=== PATIENT | female | born 1960 | race Caucasian/White ===

== ENCOUNTER → 2017-11-02 | Outpatient (CLI) | payer BC ==
--- NOTE | 2017-11-02 11:38 | BD ---
EXAMINATION TYPE: Axial Bone Density DATE OF EXAM: 11/02/2017 COMPARISON: NONE CLINICAL HISTORY: M81.0 Known Osteoporosis Height: 62.25 IN Weight: 222 LBS RISK FACTORS HISTORY OF: Active: YES Postmenopausal woman: AGE 45 MEDICATIONS: Additional Medications: PREDNISONE 12 DAY DOSE PAC, ADVAIR INHALER, 81 MG ASPIRIN, WATER PILL, EXAM MEASUREMENTS: Bone mineral densitometry was performed using the [employer] System. Bone mineral density as measured about the Lumbar spine is: ----- L1-L4(G/cm2): 1.060 T Score Values are as follows: ----- L2: -1.1 ----- L3: -1.1 ----- L4: -1.1 ----- L1-L4: -1.0 Bone mineral density BASELINE Bone mineral density about the R hip (g/cm2): 0.943 Bone mineral density about the L hip (g/cm2): 0.931 T Score values are as follows: -----R Neck: -0.7 -----L Neck: -0.8 -----R Total: -0.1 -----L Total: -0.4 Bone mineral density BASELINE IMPRESSION: Osteopenia about the lumbar spine and increased fracture risk. NOTE: T-SCORE=SD OF THE YOUNG ADULT MEAN.
--- NOTE | 2017-11-03 14:00 | MM ---
Reason for exam: screening (asymptomatic). Last mammogram was performed 3 years and 8 months ago. History: Patient is postmenopausal. Family history of premenopausal breast cancer in mother at age 43 and breast cancer in aunt. Benign add left US cyst aspiration of the left breast, August 2005. Benign stereotactic core biopsy of the left breast, February 10, 2004. Took hormonal contraceptives for 3 years beginning at age 20. Physical Findings: A clinical breast exam by your physician is recommended on an annual basis and results should be correlated with mammographic findings. MG 3D Screening Mammo W/Cad Bilateral CC and MLO view(s) were taken. Prior study comparison: March 15, 2014, bilateral MG screening mammo w CAD. March 17, 2011, mammogram, performed at [facility]. The breast tissue is heterogeneously dense. This may lower the sensitivity of mammography. Stable benign calcifications. There is chronic nodularity bilaterally. No significant changes when compared with prior studies. ASSESSMENT: Benign, BI-RAD 2 RECOMMENDATION: Routine screening mammogram of both breasts in 1 year.
== END | disposition home or self-care (01) ==
LOC: RADMAMWWP 07:03
PROVIDERS: ATTEND Internal Medicine Geriatric Medicine
DX: Z12.31 Encounter for screening mammogram for malignant neoplasm of breast (principal); M85.88 Other specified disorders of bone density and structure, other site
CPT/HCPCS: 77063; 77067; 77080

== ENCOUNTER 2018-07-03 22:00 | Observation (INO) | payer BC ==
[2018-07-03] MEDS ORDERED: SODIUM CHLORIDE 0.9% 1,000 ML IV STA ×2 (22:12)
[2018-07-03] MEDS ORDERED: SODIUM CHLORIDE 0.9% 500 ML 500 ML IV STA (22:12)
--- NOTE | 2018-07-03 22:25 | ED ---
Chest Pain HPI - General Chief Complaint: Chest Pain Stated Complaint: Chest pain Time Seen by Provider: 07/03/18 22:12 Source: patient, family, RN notes reviewed, old records reviewed Mode of arrival: ambulatory Limitations: no limitations - History of Present Illness Initial Comments: This is a 50-year-old female the ER for evaluation regards to chest pain. Aside chest pain throughout the day with no significant modifying factors. Patient tried to sleep tonight was unable to sleep had some diaphoresis heaviness on her chest. No shortness of breath. No fevers cough or congestion no travel history. No prior history of CAD patient does have history of high blood pressure MD Complaint: chest pain -: hour(s) Onset: during rest, during exertion, awoke with symptoms Pain Location: left chest Pain Radiation: LUE Severity: mild Severity scale (1-10): 3 Quality: tightness, heaviness Consistency: constant Improves With: nothing Worsens With: nothing Anginal Symptoms: other (Patient states she is does not feel right) Treatments Prior to Arrival: none - Related Data Home Medications Medication Instructions Recorded Confirmed Aspirin EC [Ecotrin Low Dose] 162 mg PO DAILY 07/03/18 07/03/18 Fluticasone/Salmeterol [Advair 1 puff INHALATION RT-BID 07/03/18 07/03/18 250-50 Diskus] Triamterene-Hctz 37.5-25Mg 1 cap PO DAILY 07/03/18 07/03/18 [Dyazide 37.5-25 Capsule] Previous Rx's Medication Instructions Recorded Metoprolol Tartrate [Lopressor] 25 mg PO BID #60 tab 07/04/18 Rosuvastatin [Crestor] 20 mg PO HS #90 tablet 07/04/18 Allergies Allergy/AdvReac Type Severity Reaction Status Date / Time No Known Allergies Allergy Verified 07/04/18 04:16 Review of Systems ROS Statement: Those systems with pertinent positive or pertinent negative responses have been documented in the HPI. ROS Other: All systems not noted in ROS Statement are negative. EKG Findings - EKG Comments: EKG Findings:: EKG shows sinus tachycardia rate of 114, [place] 146, QRS 86, QTc 4:30 Past Medical History Past Medical History: Asthma History of Any Multi-Drug Resistant Organisms: None Reported Past Surgical History: Adenoidectomy, Cholecystectomy, Hysterectomy, Tonsillectomy Past Psychological History: No Psychological Hx Reported Smoking Status: Never smoker Past Alcohol Use History: None Reported Past Drug Use History: None Reported - Past Family History Mother Family Medical History: Cancer Additional Family Medical History / Comment(s): Mother is alive at age 80 with history of hypertension and breast cancer. Father Family Medical History: Cancer Additional Family Medical History / Comment(s): Father at age 64 from kidney cancer with metastatic disease. Brother(s) Additional Family Medical History / Comment(s): Patient has 1 brother and 1 sister with no major medical problems. Patient is 2 daughters with no major medical problems. General Exam Limitations: no limitations Course Vital Signs 07/03/18 07/03/18 07/03/18 22:04 22:15 22:20 Temperature 98.7 F Pulse Rate 134 H 106 H Pulse Rate [ Pulse Oximetery ] Respiratory 20 14 Rate Blood Pressure 165/86 151/90 Blood Pressure [Left Arm] O2 Sat by Pulse 99 96 98 Oximetry 07/03/18 07/03/18 07/03/18 22:25 22:30 22:40 Temperature Pulse Rate 107 H 98 Pulse Rate [ Pulse Oximetery ] Respiratory 20 18 Rate Blood Pressure 151/90 151/90 143/64 Blood Pressure [Left Arm] O2 Sat by Pulse 98 98 Oximetry 07/03/18 07/03/18 07/03/18 22:50 23:00 23:10 Temperature Pulse Rate 111 H 95 93 Pulse Rate [ Pulse Oximetery ] Respiratory 14 13 20 Rate Blood Pressure 140/76 140/76 143/62 Blood Pressure [Left Arm] O2 Sat by Pulse 97 97 98 Oximetry 07/04/18 07/04/18 07/04/18 00:10 00:20 00:30 Temperature Pulse Rate 104 H 98 98 Pulse Rate [ Pulse Oximetery ] Respiratory 12 7 L 9 L Rate Blood Pressure 144/60 153/71 153/71 Blood Pressure [Left Arm] O2 Sat by Pulse 99 100 99 Oximetry 07/04/18 07/04/18 07/04/18 00:40 01:00 02:16 Temperature 98.5 F Pulse Rate 105 H 96 Pulse Rate [ 86 Pulse Oximetery ] Respiratory 11 L 14 16 Rate Blood Pressure 157/68 163/74 Blood Pressure 137/82 [Left Arm] O2 Sat by Pulse 99 97 97 Oximetry Disposition Clinical Impression: Chest pain Disposition: ADMITTED IP TO THIS HOSP Condition: Fair Is patient prescribed a controlled substance at d/c from ED?: No
[2018-07-03 22:35] LABS: Basophils # (A) 0.1 k/uL (0-0.2); Basophils % (A) 1 %; Eosinophils # (A) 0.4 k/uL (0-0.7); Eosinophils % (A) 3 %; HCT 48.5 % (34.0-46.0); HGB 14.5 gm/dL (11.4-16.0); Lymphocytes # (A) 2.2 k/uL (1.0-4.8); Lymphocytes % (A) 17 %; MCH 26.1 pg (25.0-35.0); MCV 87.1 fL (80.0-100.0); Mean Platelet Volume 6.6; Monocytes # (A) 0.7 k/uL (0-1.0); Monocytes % (A) 5 %; Neutrophils # (A) 9.6 k/uL (1.3-7.7); Neutrophils % (A) 73 %; Platelet Count 252 k/uL (150-450); RBC 5.57 m/uL (3.80-5.40); RDW 13.7 % (11.5-15.5); WBC 13.2 k/uL (3.8-10.6)
[2018-07-03 22:50] LABS: Creatine Kinase 46 U/L (30-135)
[2018-07-03 23:03] LABS: Creatine Kinase MB 0.3 ng/mL (0.0-2.4); Troponin I <0.012 ng/mL (0.000-0.034)
--- NOTE | 2018-07-03 23:15 | XR ---
EXAM: XR Chest, 2 Views CLINICAL HISTORY: Chest Pain. TECHNIQUE: Frontal and lateral views of the chest. COMPARISON: No relevant prior studies available. FINDINGS: Lungs: No evidence of focal consolidation. No evidence of pulmonary edema. Pleural space: No pleural effusion. No pneumothorax. Heart: Unremarkable. No cardiomegaly. Mediastinum: No mediastinal widening. Bones/joints: Osseous structures appear intact. Other: Mild elevation of right hemidiaphragm. Surgical clips in right upper quadrant. IMPRESSION: 1. No radiographic evidence of acute cardiopulmonary process. 2. Mild elevation of right hemidiaphragm.
[2018-07-03 23:25] LABS: Albumin 4.1 g/dL (3.5-5.0); Calcium 9.6 mg/dL (8.4-10.2); Potassium 3.6 mmol/L (3.5-5.1); Total Bilirubin 0.7 mg/dL (0.2-1.3); Total Protein 6.6 g/dL (6.3-8.2)
[2018-07-03 23:26] LABS: INR 0.9 (<1.2); Partial Thromboplastin Time 24.1 sec (22.0-30.0); Prothrombin Time 9.5 sec (9.0-12.0)
[2018-07-03] MEDS ORDERED: HEPARIN SOD,PORK IN 0.45% NACL 25,000 UNIT in 0.45% NACL 1 250ML.BAG IV SCH (23:45)
[2018-07-03] MEDS ORDERED: NITROGLYCERIN SL TABS 0.4 MG TAB SUBLINGUAL PRN (23:58)
[2018-07-03] MEDS ORDERED: HEPARIN SODIUM,PORCINE 5,000 UNIT/ML 1 ML VIAL IV ONE (23:58)
[2018-07-03] MEDS ORDERED: HEPARIN SODIUM,PORCINE 5,000 UNIT/ML 1 ML VIAL IV PRN (23:58)
--- NOTE | 2018-07-04 00:53 | CT ---
EXAM: CT Angiography Chest Without And With Intravenous Contrast CLINICAL HISTORY: Pain. TECHNIQUE: Axial computed tomographic angiography images of the chest without and with intravenous contrast using pulmonary embolism protocol. MIP reconstructed images were created and reviewed. Coronal and sagittal reformatted images were created and reviewed. CTDI is 53.38 mGy and DLP is 2222.3 mGy-cm. This CT exam was performed using one or more of the following dose reduction techniques: automated exposure control, adjustment of the mA and/or kV according to patient size, and/or use of iterative reconstruction technique. COMPARISON: No relevant prior studies available. FINDINGS: Pulmonary arteries: No evidence of central pulmonary embolism. Evaluation for small peripheral pulmonary emboli is limited due to suboptimal opacification of peripheral pulmonary arteries. Aorta: No thoracic aortic aneurysm or dissection. No evidence of intramural hematoma on noncontrast CT. Lungs: Unremarkable. No mass. No consolidation. No pulmonary edema. Pleural space: Unremarkable. No pleural effusion. No pneumothorax. Heart: Unremarkable. No cardiomegaly. No pericardial effusion. No evidence of RV dysfunction. Bones/joints: Mild osseous degenerative changes. Mild scoliotic curvature of the thoracic spine. No acute fracture. No dislocation. Soft tissues: Unremarkable as visualized. Lymph nodes: Unremarkable. No enlarged lymph nodes. Other: Mild elevation of right hemidiaphragm. IMPRESSION: 1. No evidence of acute chest abnormality to account for pain. 2. No thoracic aortic aneurysm or dissection. 3. No evidence of central pulmonary embolism. Evaluation for small peripheral pulmonary emboli is limited due to suboptimal opacification of peripheral pulmonary arteries. 4. Mild elevation of right hemidiaphragm. EXAM: CT Angiography Abdomen and Pelvis Without And With Intravenous Contrast CLINICAL HISTORY: Pain. TECHNIQUE: Axial computed tomographic angiography images of the abdomen and pelvis without and with intravenous contrast. MIP reconstructed images were created and reviewed. Coronal and sagittal reformatted images were created and reviewed. CTDI is 53.38 mGy and DLP is 2222.3 mGy-cm. This CT exam was performed using one or more of the following dose reduction techniques: automated exposure control, adjustment of the mA and/or kV according to patient size, and/or use of iterative reconstruction technique. COMPARISON: No relevant prior studies available. FINDINGS: VASCULATURE: Aorta: No acute findings. Mild scattered atherosclerosis. No abdominal aortic aneurysm. No dissection. No evidence of intramural hematoma on noncontrast CT. Celiac trunk and mesenteric arteries: No acute findings. No occlusion or significant stenosis. Renal arteries: No acute findings. No occlusion or significant stenosis. Iliac arteries: No acute findings. No occlusion or significant stenosis. Lung bases: Unremarkable. No mass. No consolidation. ABDOMEN: Liver: Mild fatty infiltration of the liver. Liver otherwise unremarkable. Gallbladder and bile ducts: Status post cholecystectomy. No biliary dilation. Pancreas: Unremarkable. No ductal dilation. No mass. Spleen: Unremarkable. No splenomegaly. Adrenals: Unremarkable. No mass. Kidneys and ureters: Small nonobstructive left lower pole renal calculi. Mild right pelviectasis versus extrarenal pelvis. No hydronephrosis or ureteral calculus. Stomach and bowel: Unremarkable. No bowel obstruction. No significant bowel wall thickening. PELVIS: Appendix: Normal appendix. Bladder: Unremarkable given degree of filling. No calculi. No significant wall thickening. Reproductive: Hysterectomy. Ovaries not seen. ABDOMEN and PELVIS: Intraperitoneal space: Unremarkable. No ascites or significant fluid collection. No free air. Bones/joints: Mild osseous degenerative changes. Mild curvature of the spine. No acute fracture. No dislocation. Soft tissues: Unremarkable. Lymph nodes: Unremarkable. No enlarged lymph nodes. IMPRESSION: 1. No evidence of acute abnormality in the abdomen or pelvis to account for pain. No abdominal aortic aneurysm or dissection. Abdominal aorta and branch vessels are patent. 2. Mild fatty infiltration of the liver. 3. Status post cholecystectomy and hysterectomy. 4. Small nonobstructive left lower pole renal calculi. No hydronephrosis or ureteral calculus.
[2018-07-04 02:17] VITALS: RESP 16
[2018-07-04 05:02] LABS: Mean Platelet Volume 6.7; Platelet Count 208 k/uL (150-450)
[2018-07-04 05:23] LABS: Creatine Kinase 45 U/L (30-135)
[2018-07-04 05:35] LABS: Creatine Kinase MB 0.3 ng/mL (0.0-2.4); Troponin I <0.012 ng/mL (0.000-0.034)
[2018-07-04 06:02] LABS: Cholesterol 232 mg/dL (<200); HDL Cholesterol 58 mg/dL (40-60); LDL Cholesterol,Calculated 152 mg/dL (0-99); Triglycerides 111 mg/dL (<150)
[2018-07-04] MEDS ORDERED: SYMBICORT 80-4.5 MCG INHALER INHALATION SCH (08:00)
[2018-07-04] MEDS ORDERED: ASPIRIN 325 MG TAB PO SCH (09:00)
[2018-07-04] MEDS ORDERED: TRIAMTERENE-HCTZ 37.5-25MG 1 EACH CAP PO SCH (09:00)
[2018-07-04] MEDS ORDERED: ASPIRIN 81 MG PO SCH (09:00)
--- NOTE | 2018-07-04 11:37 | P.CRDCN ---
History of Present Illness History of present illness: This is a pleasant 58-year-old female past medical history significant for hyperetension and asthma. She denies history of dyslipidemia, coronary artery disease or diabetes mellitus. We have been asked to see her in consultation for chest pain. She has been struggling with nausea, vomiting and diarrhea after eating for the last few weeks. Yesterday she ate a turkey sandwich at work and immediately thereafter started feeling nauseated, dizzy, diaphoretic and started vomiting. Then diarrhea. She went home and continued to feel not well all day with frequent bouts of diarrhea and vomiting. She started noticing her heart was racing and it felt like a tight tugging sensation in the left precordial region with numbness in her right axillary region and numbness down her right arm. She then felt some numbness in the left hand. Her fit bit was reading her heart rate at 150. EKG on arrival reveals right bundle branch block with heart rate 114. Chest xray with mild right hemidiaphragm elevation with no acute event. CTA thoracic aorta no PE, lungs and aorta unremarkable. Laboratory data reviewed, WBC 13.2, hemoglobin 14.5, platelets 208, sodium 138, potassium 3.6, creatinine 0.93, magnesium 2.0, cardiac enzymes negative 2, LDL 152, HDL 58, NTproBNP 33. Current cardiac medications include dyazide 37.5/25 mg daily and aspirin 162 mg daily. At the time of my exam: CONSTITUTIONAL: Denies fever. Denies chills. EYES: Denies blurred vision. Denies vision changes. Denies eye pain. EARS, NOSE, MOUTH & THROAT: Denies headache. Denies sore throat. Denies ear pain. CARDIOVASCULAR: Denies chest pain. Denies shortness of breath. Denies orthopnea. Denies PND. Denies palpitations. RESPIRATORY: Denies cough. GASTROINTESTINAL: Denies abdominal pain. Denies diarrhea. Denies constipation. Denies nausea. Denies vomiting. MUSCULOSKELETAL: Denies myalgias. INTEGUMENTARY: Denies pruitis. Denies rash. NEUROLOGIC: Denies numbness. Denies tingling. Denies weakness. PSYCHIATRIC: Denies anxiety. Denies depression. ENDOCRINE: Denies fatigue. Denies weight change. Denies polydipsia. Denies polyurina. GENITOURINARY: Denies burning, hematuria or urgency with micturation. HEMATOLOGIC: Denies history of anemia. Denies bleeding. Blood pressure 133/80 heart rate 97 afebrile maintaining oxygen saturation on room air GENERAL: This is a 58-year-old female in no apparent distress at the time of my examination. HEENT: Head is atraumatic, normocephalic. Pupils are equal, round. Sclerae anicteric. Conjunctivae are clear. Mucous membranes of the mouth are moist. Neck is supple. There is no jugular venous distention. No carotid bruit is heard. LUNGS: Clear to auscultation no wheezes, rales or rhonchi. No chest wall tenderness is noted on palpation or with deep breathing. HEART: Regular rate and rhythm without murmurs, rubs or gallops. S1 and S2 heard. ABDOMEN: Soft, nontender. Bowel sounds are heard. No organomegaly noted. EXTREMITIES: No evidence of peripheral edema and no calf tenderness noted. VASCULAR: Radial and dorsalis pedis pulses palpated, no evidence of clubbing. NEUROLOGIC: Patient is awake, alert and oriented x3. ASSESSMENT Chest pain, atypical. Acute coronary event has been ruled out. Nausea, vomiting and diarrhea after eating for several weeks Dyslipidemia Hypertension Asthma Obesity, BMI 35 PLAN An acute coronary event has been ruled out. Symptoms not suggestive of coronary ischemia or angina. Will check an echo to assess cardiac structure and function. Add on small dose of lopressor 25 mg BID and rosuvastatin 20 mg daily for elevated LDL suggestive of familial dyslipidemia. Check thyroid function. Recommend GI evaluation. Will pursue stress testing as an outpatient once GI symptoms have improved. Stable from a cardiac perspective. Follow up with Dr. Nicholson in the office upon discharge. Thank you kindly for this consultation. Nurse Practitioner note has been reviewed, I agree with a documented findings and plan of care. Patient was seen and examined. Past Medical History Past Medical History: Asthma, Hypertension History of Any Multi-Drug Resistant Organisms: None Reported Past Surgical History: Adenoidectomy, Cholecystectomy, Hysterectomy, Tonsillectomy Additional Past Surgical History / Comment(s): colonoscopy Past Anesthesia/Blood Transfusion Reactions: No Reported Reaction Past Psychological History: No Psychological Hx Reported Smoking Status: Never smoker Past Alcohol Use History: Occasional Past Drug Use History: None Reported - Past Family History Mother Family Medical History: Cancer Additional Family Medical History / Comment(s): breast cancer Father Family Medical History: Cancer Additional Family Medical History / Comment(s): adrenal cancer Medications and Allergies Home Medications Medication Instructions Recorded Confirmed Type Aspirin EC [Ecotrin Low Dose] 162 mg PO DAILY 07/03/18 07/03/18 History Fluticasone/Salmeterol [Advair 1 puff INHALATION RT-BID 07/03/18 07/03/18 History 250-50 Diskus] Triamterene-Hctz 37.5-25Mg 1 cap PO DAILY 07/03/18 07/03/18 History [Dyazide 37.5-25 Capsule] Allergies Allergy/AdvReac Type Severity Reaction Status Date / Time No Known Allergies Allergy Verified 07/04/18 04:16 Physical Exam Vitals: Vital Signs Temp Pulse Pulse Resp BP BP Pulse Ox 07/04/18 07:55 98.7 F 97 16 133/80 97 07/04/18 06:02 77 16 07/04/18 02:30 77 16 07/04/18 02:16 98.5 F 86 16 137/82 97 07/04/18 01:00 96 14 163/74 97 07/04/18 00:40 105 H 11 L 157/68 99 07/04/18 00:30 98 9 L 153/71 99 07/04/18 00:20 98 7 L 153/71 100 07/04/18 00:10 104 H 12 144/60 99 07/03/18 23:10 93 20 143/62 98 07/03/18 23:00 95 13 140/76 97 07/03/18 22:50 111 H 14 140/76 97 07/03/18 22:40 143/64 07/03/18 22:30 98 18 151/90 98 07/03/18 22:25 107 H 20 151/90 98 07/03/18 22:20 106 H 14 151/90 98 07/03/18 22:15 96 07/03/18 22:04 98.7 F 134 H 20 165/86 99 Intake and Output 07/03/18 07/04/18 07/04/18 22:59 06:59 14:59 Intake Total 115 Balance 115 Intake: IV 80 0.9 80 Intake, IV Titration 35 Amount Heparin Sod,Pork in 0.45% 35 NaCl 25,000 unit In 0.45 % NaCl 1 250ml.bag @ 10 mls/hr IV .Q24H [facility] Rx#: [id number] Other: Voiding Method Toilet # Voids 2 Weight 99.79 kg Results 07/04/18 04:30 07/03/18 22:57 Cardiac Enzymes 07/03/18 07/03/18 07/04/18 Range/Units 22:22 22:57 04:30 AST 26 (14-36) U/L CK-MB (CK-2) 0.3 0.3 (0.0-2.4) ng/mL Troponin I <0.012 <0.012 (0.000-0.034) ng/mL Coagulation 07/03/18 07/04/18 Range/Units 22:57 07:15 PT 9.5 (9.0-12.0) sec APTT 24.1 45.6 H (22.0-30.0) sec Lipids 07/04/18 Range/Units 04:30 Triglycerides 111 (<150) mg/dL Cholesterol 232 H (<200) mg/dL HDL Cholesterol 58 (40-60) mg/dL CBC 07/03/18 07/04/18 Range/Units 22:22 04:30 WBC 13.2 H (3.8-10.6) k/uL RBC 5.57 H (3.80-5.40) m/uL Hgb 14.5 (11.4-16.0) gm/dL Hct 48.5 H (34.0-46.0) % Plt Count 252 208 (150-450) k/uL Comprehensive Metabolic Panel 07/03/18 Range/Units 22:57 Sodium 138 (137-145) mmol/L Potassium 3.6 (3.5-5.1) mmol/L Chloride 102 (98-107) mmol/L Carbon Dioxide 27 (22-30) mmol/L BUN 15 (7-17) mg/dL Creatinine 0.93 (0.52-1.04) mg/dL Glucose 153 H (74-99) mg/dL Calcium 9.6 (8.4-10.2) mg/dL AST 26 (14-36) U/L ALT 61 H (9-52) U/L Alkaline Phosphatase 70 (38-126) U/L Total Protein 6.6 (6.3-8.2) g/dL Albumin 4.1 (3.5-5.0) g/dL Current Medications Generic Name Dose Route Start Last Admin Trade Name Freq PRN Reason Stop Dose Admin Aspirin 162 mg 07/04/18 09:00 Aspirin PO DAILY [facility] Budesonide/Formoterol Fumarate 2 puff 07/04/18 08:00 Symbicort 80-4.5 Mcg Inhaler INHALATION RT-BID [facility] Heparin Sodium (Porcine) 0 unit 07/03/18 23:58 Heparin IV Q6HR PRN Low PTT Protocol Heparin Sodium/Sodium Chloride 250 mls @ 10 mls/hr 07/03/18 23:45 07/04/18 01 :40 25,000 unit/ Sodium Chloride IV 10 units/kg/hr .Q24H EFREN 9.97 mls/hr Administration Protocol Nitroglycerin 0.4 mg 07/03/18 23:58 Nitrostat SUBLINGUAL Q5M PRN Chest Pain Triamterene/HCTZ 1 each 07/04/18 09:00 Dyazide PO DAILY [facility] Intake and Output 07/03/18 07/04/18 07/04/18 22:59 06:59 14:59 Intake Total 115 Balance 115 Intake: IV 80 0.9 80 Intake, IV Titration 35 Amount Heparin Sod,Pork in 0.45% 35 NaCl 25,000 unit In 0.45 % NaCl 1 250ml.bag @ 10 mls/hr IV .Q24H [facility] Rx#: [id number] Other: Voiding Method Toilet # Voids 2 Weight 99.79 kg 07/04/18 04:30 07/03/18 22:57
[2018-07-04 11:39] VITALS: BP 143/67; PULSE 67; TEMP 98.5
[2018-07-04 11:53] LABS: Creatine Kinase 37 U/L (30-135)
[2018-07-04 12:05] LABS: Creatine Kinase MB 0.3 ng/mL (0.0-2.4); Troponin I <0.012 ng/mL (0.000-0.034)
--- NOTE | 2018-07-04 12:50 | ECHOF ---
Referral Reason:cp MEASUREMENTS -------- HEIGHT: 165.1 cm WEIGHT: 99.8 kg BP: RVIDd: 2.7 cm (< 3.3) IVSd: 1.2 cm (0.6 - 1.1) LVIDd: 4.0 cm (3.9 - 5.3) LVPWd: 1.4 cm (0.6 - 1.1) IVSs: 1.4 cm LVIDs: 3.6 cm LVPWs: 1.4 cm LA Diam: 3.6 cm (2.7 - 3.8) Ao Diam: 3.1 cm (2.0 - 3.7) AV Cusp: 1.3 cm (1.5 - 2.6) LA Diam: 3.0 cm (2.7 - 3.8) MV EXCURSION: 19.913 mm (> 18.000) MV EF SLOPE: 71 mm/s (70 - 150) EPSS: 0.5 cm MV E Moises: 0.66 m/s MV DecT: 194 ms MV A Moises: 0.89 m/s MV E/A Ratio: 0.74 RAP: 5.00 mmHg RVSP: 15.58 mmHg FINDINGS -------- Sinus rhythm. This was a techncally difficult study with suboptimal views, , Lumason utilized for enhancement of im ages. The left ventricular size is normal. There is mild concentric left ventricular hypertrophy. Overa ll left ventricular systolic function is normal with, an EF between 55 - 60 %. The right ventricle is normal in size. The left atrial size is normal. The right atrial size is normal. 5.0mg OF Lumason UTLIZED: 2 OR MORE WALL SEGMENTS NOT VISUALIZED. The aortic valve is trileaflet, and appears structurally normal. No aortic stenosis or regurgitation. Mild mitral regurgitation is present. Mild tricuspid regurgitation present. There is no evidence of pulmonary hypertension. The right v entricular systolic pressure, as measured by Doppler, is 15.58mmHg. There is no pulmonic regurgitation present. The aortic root size is normal. Echo free space represents a pericardial fat pad. CONCLUSIONS -------- 1. This was a techncally difficult study with suboptimal views, , Lumason utilized for enhancement of images. 2. The left ventricular size is normal. 3. There is mild concentric left ventricular hypertrophy. 4. Overall left ventricular systolic function is normal with, an EF between 55 - 60 %. 5. The right ventricle is normal in size. 6. The left atrial size is normal. 7. The right atrial size is normal. 8. 5.0mg OF Lumason UTLIZED: 2 OR MORE WALL SEGMENTS NOT VISUALIZED. 9. The aortic valve is trileaflet, and appears structurally normal. No aortic stenosis or regurgitati on. 10. Mild mitral regurgitation is present. 11. Mild tricuspid regurgitation present. 12. There is no evidence of pulmonary hypertension. 13. The right ventricular systolic pressure, as measured by Doppler, is 15.58mmHg. 14. There is no pulmonic regurgitation present. 15. The aortic root size is normal. 16. Echo free space represents a pericardial fat pad. TELEVISION AUDIO ENGINEER: Ramona Thompson RDCS
--- NOTE | 2018-07-04 15:19 | P.HPIM ---
History of Present Illness H&P Date: 07/04/18 Chief Complaint: Chest pain This is a 58-year-old female patient of Dr. Mejia with past medical history for mild intermittent asthma, hypertension. Patient states overall she was at work she had turkey sandwich and then she started feeling hot with heart rates and diarrhea started about 1 hour later. She states she went home and then developed vomiting and diarrhea. She states she slept for about 4 hours and then she got up and she was looking at her. It is she noticed that her heart rate was 77 on Tuesday jumped up to 152 and she started feeling sweaty and she also had a sensation from her right armpit to her fingertips in the left hand were numb. She was feeling a pulling sensation in her chest. Fairly this has happened on a number of occasions. Yesterday she had vomiting a couple times and diarrhea 6 times but none since she's been in the hospital. She had a colonoscopy in [address] Vargas. Patient presented to [facility] for evaluation and was subsequently started on aspirin, heparin drip, sublingual nitroglycerin, placed on the observation unit and consult requested with cardiology. Initial vital signs reveal patient was afebrile, blood pressure 165/86, pulse ox 99% on room air, heart rate running 106-134, respirations 20. Laboratory studies reveal a white count of 13.2, hemoglobin 14.5, platelet count 252. Electrolytes, renal function within normal limits, blood sugar 153, ALT 61. Troponin has been negative on 2 draws. Triglycerides 111, cholesterol 232, LDL 152, HDL 58, lipase normal. Chest x-ray shows no acute cardiopulmonary process. Mild elevation of the right hemidiaphragm. CT angios of the chest showed no evidence of acute chest abnormality. No thoracic aortic aneurysm or dissection. No evidence of central pulmonary embolism. Evaluation of small peripheral pulmonary emboli is limited. Mild elevation of the right hemidiaphragm. Mild fatty infiltration of the liver. Status post cholecystectomy and hysterectomy. Small nonobstructive left lower pole renal calculi. No hydronephrosis or ureteral calculus. Patient was seen by cardiology and subsequent troponins came back negative. Chest pain was thought to be atypical and acute coronary syndrome ruled out. Patient was started on Lopressor 25 mg twice daily and Crestor 20 mg daily for elevated LDL. Stress testing is to be done as an outpatient once GI symptoms are resolved and patient to follow-up with Dr. Nicholson in the office. Patient was cleared by cardiology for discharge. We recommended that patient see GI but patient requested to follow-up in the office versus waiting. Patient will be discharged home today in stable condition. Chromogranin A was ordered but not reported prior to her discharge. Discharge Medication List Aspirin EC [Ecotrin Low Dose] 162 mg PO DAILY 07/03/18 [History] Fluticasone/Salmeterol [Advair 250-50 Diskus] 1 puff INHALATION RT-BID 07/03/18 [History] Triamterene-Hctz 37.5-25Mg [Dyazide 37.5-25 Capsule] 1 cap PO DAILY 07/03/18 [ History] Metoprolol Tartrate [Lopressor] 25 mg PO BID #60 tab 07/04/18 [Rx] Rosuvastatin [Crestor] 20 mg PO HS #90 tablet 07/04/18 [Rx] Review of Systems All systems: negative Constitutional: Denies chills, Denies fever, Denies weakness Eyes: denies blurred vision, denies pain Ears, nose, mouth and throat: Denies dental pain, Denies dysphagia, Denies headache, Denies mouth pain, Denies sore throat, Denies vertigo Cardiovascular: Reports palpitations, Reports rapid heart beat, Denies chest pain, Denies edema, Denies leg edema, Denies lightheadedness, Denies orthopnea, Denies shortness of breath Respiratory: Denies cough Gastrointestinal: Reports diarrhea, Reports loss of appetite, Reports nausea, Reports vomiting, Denies abdominal pain Genitourinary: Denies dysuria, Denies hematuria Musculoskeletal: Denies frequent falls, Denies gait dysfunction, Denies muscle weakness, Denies myalgias Integumentary: Denies pruritus, Denies rash, Denies wounds Neurological: Denies aphasia, Denies change in mentation, Denies confusion, Denies convulsions, Denies numbness, Denies seizures, Denies weakness Psychiatric: Denies anxiety, Denies depression Endocrine: Denies fatigue, Denies weight change Past Medical History Past Medical History: Asthma, Hypertension History of Any Multi-Drug Resistant Organisms: None Reported Past Surgical History: Adenoidectomy, Cholecystectomy, Hysterectomy, Tonsillectomy Additional Past Surgical History / Comment(s): colonoscopy Past Anesthesia/Blood Transfusion Reactions: No Reported Reaction Past Psychological History: No Psychological Hx Reported Smoking Status: Never smoker Past Alcohol Use History: Occasional Additional Past Alcohol Use History / Comment(s): Patient is a lifelong nonsmoker. No illicit drug use. She drinks alcohol occasionally. Patient was at home with her . Past Drug Use History: None Reported - Past Family History Mother Family Medical History: Cancer Additional Family Medical History / Comment(s): Mother is alive at age 80 with history of hypertension and breast cancer. Father Family Medical History: Cancer Additional Family Medical History / Comment(s): Father at age 64 from kidney cancer with metastatic disease. Brother(s) Additional Family Medical History / Comment(s): Patient has 1 brother and 1 sister with no major medical problems. Patient is 2 daughters with no major medical problems. Medications and Allergies Home Medications Medication Instructions Recorded Confirmed Type Aspirin EC [Ecotrin Low Dose] 162 mg PO DAILY 07/03/18 07/03/18 History Fluticasone/Salmeterol [Advair 1 puff INHALATION RT-BID 07/03/18 07/03/18 History 250-50 Diskus] Triamterene-Hctz 37.5-25Mg 1 cap PO DAILY 07/03/18 07/03/18 History [Dyazide 37.5-25 Capsule] Metoprolol Tartrate [Lopressor] 25 mg PO BID #60 tab 07/04/18 Rx Rosuvastatin [Crestor] 20 mg PO HS #90 tablet 07/04/18 Rx Allergies Allergy/AdvReac Type Severity Reaction Status Date / Time No Known Allergies Allergy Verified 07/04/18 04:16 Physical Exam Vitals: Vital Signs Temp Pulse Pulse Resp BP BP Pulse Ox 07/04/18 06:02 77 16 07/04/18 02:30 77 16 07/04/18 02:16 98.5 F 86 16 137/82 97 07/04/18 01:00 96 14 163/74 97 07/04/18 00:40 105 H 11 L 157/68 99 07/04/18 00:30 98 9 L 153/71 99 07/04/18 00:20 98 7 L 153/71 100 07/04/18 00:10 104 H 12 144/60 99 07/03/18 23:10 93 20 143/62 98 07/03/18 23:00 95 13 140/76 97 07/03/18 22:50 111 H 14 140/76 97 07/03/18 22:40 143/64 07/03/18 22:30 98 18 151/90 98 07/03/18 22:25 107 H 20 151/90 98 07/03/18 22:20 106 H 14 151/90 98 07/03/18 22:15 96 07/03/18 22:04 98.7 F 134 H 20 165/86 99 Intake and Output 07/03/18 07/04/18 07/04/18 22:59 06:59 14:59 Intake Total 115 Balance 115 Intake: IV 80 0.9 80 Intake, IV Titration 35 Amount Heparin Sod,Pork in 0.45% 35 NaCl 25,000 unit In 0.45 % NaCl 1 250ml.bag @ 10 mls/hr IV .Q24H EFREN Rx#: [id number] Other: Voiding Method Toilet # Voids 2 Weight 99.79 kg Gen: This is a 58-year-old obese female. Patient is resting in bed and appears to be comfortable and in no acute distress. HEENT: Head is atraumatic, normocephalic. Pupils equal, round. Sclerae is anicteric. Oral mucous members are moist. NECK: Supple. No JVD. No lymphadenopathy. No thyromegaly. LUNGS: Clear to auscultation. No wheezes or rhonchi. No intercostal retractions. HEART: Regular rate and rhythm. No murmur. ABDOMEN: Soft. Bowel sounds are present. No masses. No tenderness. EXTREMITIES: No pedal edema. No calf tenderness. NEUROLOGICAL: Patient is awake, alert and oriented x3. Cranial nerves 2 through 12 are grossly intact. Results CBC & Chem 7: 07/04/18 04:30 07/03/18 22:57 Labs: Abnormal Lab Results - Last 24 Hours (Table) 07/03/18 07/03/18 07/04/18 Range/Units 22:22 22:57 04:30 WBC 13.2 H (3.8-10.6) k/uL RBC 5.57 H (3.80-5.40) m/uL Hct 48.5 H (34.0-46.0) % MCHC 30.0 L (31.0-37.0) g/dL Neutrophils # 9.6 H (1.3-7.7) k/uL APTT (22.0-30.0) sec Glucose 153 H (74-99) mg/dL ALT 61 H (9-52) U/L Cholesterol 232 H (<200) mg/dL LDL Cholesterol, Calc 152 H (0-99) mg/dL 07/04/18 Range/Units 07:15 WBC (3.8-10.6) k/uL RBC (3.80-5.40) m/uL Hct (34.0-46.0) % MCHC (31.0-37.0) g/dL Neutrophils # (1.3-7.7) k/uL APTT 45.6 H (22.0-30.0) sec Glucose (74-99) mg/dL ALT (9-52) U/L Cholesterol (<200) mg/dL LDL Cholesterol, Calc (0-99) mg/dL Thrombosis Risk Factor Assmnt - DVT/VTE Prophylaxis DVT/VTE Prophylaxis: Mechanical Prophylaxis ordered - Choose All That Apply Any of the Below Risk Factors Present?: Yes Each Factor Represents 1 point: Age 41-60 years, Obesity (BMI >25) Other Risk Factors: No Other congenital or acquired thrombophilia - If yes, enter type in comment: No Thrombosis Risk Factor Assessment Total Risk Factor Score: 2 Thrombosis Risk Factor Assessment Level: Low Risk Assessment and Plan Plan: 1. Chest pain, acute coronary syndrome ruled out. 2. Nausea vomiting diarrhea after eating with concern for dumping syndrome. 3. Hypertension. 4. Mild intermittent asthma without exacerbation. 5. Dyslipidemia. 6. Palpitations and sinus tachycardia. Patient placed in the observation unit. Discharge plan: Return home Impression and plan of care have been directed as dictated by the signing physician. Kaitlyn Cervantes nurse practitioner acting as scribe for signing physician.
[2018-07-04] MEDS ORDERED: METOPROLOL TARTRATE 25 MG TAB PO SCH (21:00)
[2018-07-04] MEDS ORDERED: ATORVASTATIN 40 MG TAB PO SCH (21:00)
== END 2018-07-04 15:40 | disposition home or self-care (01) ==
LOC: EC 22:00 → 1SOBS 07-04 00:01
PROVIDERS: ADMIT Internal Medicine; ATTEND Internal Medicine
DX: R07.89 Other chest pain (principal); I45.10 Unspecified right bundle-branch block; R20.0 Anesthesia of skin; R00.0 Tachycardia, unspecified; I10 Essential (primary) hypertension; R42 Dizziness and giddiness; R00.2 Palpitations; R11.2 Nausea with vomiting, unspecified; R19.7 Diarrhea, unspecified; R61 Generalized hyperhidrosis; E78.5 Hyperlipidemia, unspecified; J45.20 Mild intermittent asthma, uncomplicated; K76.0 Fatty (change of) liver, not elsewhere classified; N20.0 Calculus of kidney; Z90.710 Acquired absence of both cervix and uterus; Z90.49 Acquired absence of other specified parts of digestive tract; E66.9 Obesity, unspecified; Z68.35 Body mass index [BMI] 35.0-35.9, adult; Z80.3 Family history of malignant neoplasm of breast; Z80.8 Family history of malignant neoplasm of other organs or systems; Z80.51 Family history of malignant neoplasm of kidney; Z82.49 Family history of ischemic heart disease and other diseases of the circulatory system; Z79.82 Long term (current) use of aspirin; Z79.51 Long term (current) use of inhaled steroids; Z79.899 Other long term (current) drug therapy
CPT/HCPCS: 96366; 96376; 96361; 96365; 99285; 36415; 94640; 93005; 93306; 86316; 83880; 80061; 80053; 84443; 82550 ×2; 82553 ×2; 83690; 83735; 84484 ×2; 85025; 85049; 85610; 85730 ×2; 71046; 71275; 74174; G0378; J1644 ×2; Q9950; Q9967

== ENCOUNTER 2018-07-28 11:33 | Day surgery (SDC) | payer BC ==
[2018-07-26 10:03] VITALS: BMI 35.5
[~2018-07-28 11:33] MED LIST: LACTATED RINGERS 1,000 ML IV SCH
[2018-07-28 11:59] VITALS: RESP 16; TEMP 98.1
[2018-07-28] MEDS ORDERED: GLYCOPYRROLATE 0.2 MG/ML 2 ML VIAL ONE (12:39)
[2018-07-28] MEDS ORDERED: PROPOFOL 10 MG/ML 20 ML VIAL IV ONE (12:39)
[2018-07-28] MEDS ORDERED: LIDOCAINE 1% INJ 10MG/ML (20 ML MDV) ONE (12:39)
--- NOTE | 2018-07-28 13:05 | P.PCN ---
Date of Procedure: 07/28/18 Procedure(s) Performed: Brief history: Patient is a pleasant 58-year-old pleasant white female scheduled for an elective upper endoscopy as well as colonoscopy as a part of evaluation of evaluation of abdominal pain, intermittent episodes of nausea vomiting and diarrhea for the last several months duration. In between episodes she is a symptomatic. Procedure performed: Esophagogastroduodenoscopy with biopsy Colonoscopy with biopsy Preoperative diagnosis: Intermittent episodes of abdominal pain, nausea, vomiting and diarrhea of several months duration Anesthesia: MAC Procedure: After informed consent was obtained from the patient was brought into the endoscopy unit and IV sedation was administered by anesthesia under continuous monitoring. Initially upper endoscopy was done. The Olympus GF 160 video endoscope was inserted inserted into the mouth and esophagus intubated without any difficulty and was gradually advanced into the stomach and duodenum and carefully examined. The bulb and second part of the duodenum appeared normal. The abscess were done from the duodenum to rule out celiac disease. The scope was then withdrawn into the stomach adequately insufflated with air and upon careful examination the antrum had scattered erosions and biopsies were done from this area. The body, cardia and fundus appeared normal. The scope was then withdrawn into the esophagus. The GE junction was located at 40 cm to the incisors. It appeared regular with no erythema erosions or ulcerations. Rest of the esophagus appeared normal. Patient tolerated the procedure well. At this time the patient continued to remain sedation. Initial digital rectal examination was normal. Olympus CF 160 video colonoscope was then inserted into the rectum and gradually advanced to the cecum without any difficulty. Careful examination was performed as the scope was gradually being withdrawn. The prep was excellent. The cecum, ascending colon, transverse colon, descending colon, sigmoid colon and rectum appeared normal. Random biopsies were done from ascending and descending colon to rule out microscopic/ collagenous colitis. Retroflexion was performed in the rectum and no lesions were noted. Patient tolerated the procedure well. Impression: 1. Upper endoscopy revealed mild gastritis but no evidence of esophagitis or peptic ulcer disease. 2. Colonoscopy was essentially within normal limits with no evidence of colitis or colorectal neoplasia Recommendations: Findings of this examination were discussed with the patient as well as her family. She was advised to follow with the biopsy results. She can have a repeat screening colonoscopy in 10 years.
[2018-07-28 13:37] VITALS: BP 138/74; PULSE 70
== END 2018-07-28 13:54 | disposition home or self-care (01) ==
LOC: ORWHC2ENDO 11:33
PROVIDERS: ATTEND Internal Medicine Gastroenterology
DX: K29.50 Unspecified chronic gastritis without bleeding (principal); R19.7 Diarrhea, unspecified; I10 Essential (primary) hypertension; E78.5 Hyperlipidemia, unspecified; J45.909 Unspecified asthma, uncomplicated; Z79.82 Long term (current) use of aspirin; Z79.899 Other long term (current) drug therapy; Z79.51 Long term (current) use of inhaled steroids
CPT/HCPCS: 88305; 45380; 43239; J2001; J2704

== ENCOUNTER → 2021-11-25 | Outpatient (CLI) | payer BC ==
--- NOTE | 2021-11-26 08:11 | MM ---
Reason for Exam: Screening (asymptomatic). Last mammogram was performed 1 year(s) and 6 month(s) ago. Patient History: Menarche at age 14. First Full-Term at age 23. Left ovary removed at age 45. Right ovary removed at age 45. Hysterectomy at age 45. Postmenopausal. Hormonal Contraceptives for 3 years from age 20 until age 23. 08/2005, Benign Cyst Aspiration on the left side. 02/10/2004, Benign Stereotactic Core Biopsy on the left side. Maternal aunt had breast cancer. Mother had breast cancer, age 43. Risk Values: Mechelle 5 year model risk: 3.1%. NCI Lifetime model risk: 14.1%. Prior Study Comparison: 03/17/2011 Screening Mammogram, [facility]. 03/15/2014 Bilateral Screening Mammogram, [facility]. 11/02/2017 Bilateral Screening Mammogram, [facility]. 05/06/2020 Bilateral MG 3D screening mammo w/cad, [facility]. Tissue Density: The breast tissue is heterogeneously dense. This may lower the sensitivity of mammography. Findings: Analyzed By CAD. There is no suspicious group of microcalcifications or new suspicious mass in either breast. Overall Assessment: Benign, BI-RAD 2 Management: Screening Mammogram of both breasts in 1 year. A clinical breast exam by your physician is recommended on an annual basis and results should be correlated with mammographic findings. Electronically signed and approved by: Basilio Murray M.D. Radiologis
== END | disposition home or self-care (01) ==
LOC: RADMAMWWP 09:30
PROVIDERS: ATTEND Internal Medicine Geriatric Medicine
DX: Z12.31 Encounter for screening mammogram for malignant neoplasm of breast (principal); R92.8 Other abnormal and inconclusive findings on diagnostic imaging of breast
CPT/HCPCS: 77063; 77067

== ENCOUNTER 2022-12-06 05:29 | Observation (INO) | payer BC ==
[2022-12-06 05:50] LABS: Basophils % (A) 1 %; Eosinophils # (A) 0.4 k/uL (0-0.7); Eosinophils % (A) 7 %; HCT 46.8 % (34.0-46.0); HGB 15.5 gm/dL (11.4-16.0); Lymphocytes # (A) 1.6 k/uL (1.0-4.8); Lymphocytes % (A) 30 %; MCH 28.8 pg (25.0-35.0); MCHC 33.1 g/dL (31.0-37.0); Mean Platelet Volume 8.2; Monocytes # (A) 0.5 k/uL (0-1.0); Monocytes % (A) 10 %; Neutrophils # (A) 2.7 k/uL (1.3-7.7); Neutrophils % (A) 51 %; Platelet Count 222 k/uL (150-450); RBC 5.38 m/uL (3.80-5.40); RDW 12.9 % (11.5-15.5); WBC 5.3 k/uL (3.8-10.6)
[2022-12-06 06:00] LABS: INR 0.9 (<1.2); Prothrombin Time 9.5 sec (9.0-12.0)
[2022-12-06] MEDS ORDERED: ASPIRIN 81 MG PO STA (06:03)
[2022-12-06] MEDS ORDERED: LORazepam 0.5 MG TAB PO STA (06:03)
[2022-12-06 06:08] LABS: ALT 42 U/L (4-34); AST 32 U/L (14-36); African American GFR (CKD) >90 (>60 ml/min/1.73 sqM); Albumin 4.1 g/dL (3.5-5.0); Alkaline Phosphatase 76 U/L (38-126); Anion Gap 6 mmol/L; Blood Urea Nitrogen 9 mg/dL (7-17); Calcium 9.2 mg/dL (8.4-10.2); Carbon Dioxide 28 mmol/L (22-30); Chloride 106 mmol/L (98-107); Glucose 132 mg/dL (74-99); Magnesium 2.3 mg/dL (1.6-2.3); Non-African American GFR(CKD) 83 (>60 ml/min/1.73 sqM); Potassium 3.5 mmol/L (3.5-5.1); Sodium 140 mmol/L (137-145); Total Bilirubin 0.5 mg/dL (0.2-1.3); Total Protein 6.6 g/dL (6.3-8.2)
--- NOTE | 2022-12-06 06:16 | ED ---
General Adult HPI - General Chief complaint: Chest Pain Stated complaint: Chest Pain Time Seen by Provider: 12/06/22 05:52 Source: patient, RN notes reviewed, old records reviewed Mode of arrival: ambulatory Limitations: no limitations - History of Present Illness Initial comments: Patient is a 62-year-old female presents with Department complaining of chest pain. Has a history anxiety. States she awoke earlier this evening, and after going to bathroom began having some left-sided chest pain with shortness of breath and had diaphoresis with the chest pain. This gives a pressure like sensation. Knott nauseous at that time as well. Had generalized tingling of her extremities. Denies any current abdominal pain, nausea, vomiting. Denies any diarrhea. Denies any cough or fever. Currently denies shortness of breath. Unknown if this is anxiety that is causing her something else. No known cardiac history. Presents for further evaluation at this time. - Related Data Home Medications Medication Instructions Recorded Confirmed Aspirin EC [Ecotrin Low Dose] 162 mg PO DAILY 07/03/18 07/28/18 Fluticasone Propion/Salmeterol 1 puff INHALATION RT-BID 07/03/18 07/28/18 [Advair 250-50 Diskus] Triamterene-Hctz 37.5-25Mg 1 cap PO DAILY 07/03/18 07/26/18 [Dyazide 37.5-25 Capsule] Previous Rx's Medication Instructions Recorded Metoprolol Tartrate [Lopressor] 25 mg PO BID #60 tab 07/04/18 Rosuvastatin [Crestor] 20 mg PO HS #90 tablet 07/04/18 Allergies Allergy/AdvReac Type Severity Reaction Status Date / Time No Known Allergies Allergy Verified 07/28/18 11:49 Review of Systems ROS Statement: Those systems with pertinent positive or pertinent negative responses have been documented in the HPI. Review of Systems: CONST: Denies fever EYES: Denies blurry vision ENT: Denies nasal congestion C/V: Endorses Chest pressure RESP: Denies shortness of breath GI: Denies abdominal pain : Denies dysuria SKIN: Denies rash. MSK: Denies joint pain. NEURO: Denies headache ROS Other: All systems not noted in ROS Statement are negative. Past Medical History Past Medical History: Asthma, Hyperlipidemia, Hypertension Additional Past Medical History / Comment(s): ABDOMINAL PAIN, DIARRHEA History of Any Multi-Drug Resistant Organisms: None Reported Past Surgical History: Adenoidectomy, Cholecystectomy, Hysterectomy, Tonsil lectomy Additional Past Surgical History / Comment(s): colonoscopy Past Anesthesia/Blood Transfusion Reactions: No Reported Reaction Past Psychological History: No Psychological Hx Reported Past Alcohol Use History: None Reported Past Drug Use History: None Reported - Past Family History Mother Family Medical History: Cancer Additional Family Medical History / Comment(s): Mother is alive at age 80 with history of hypertension and breast cancer. Father Family Medical History: Cancer Additional Family Medical History / Comment(s): Father at age 64 from kidney cancer with metastatic disease. Brother(s) Additional Family Medical History / Comment(s): Patient has 1 brother and 1 sister with no major medical problems. Patient is 2 daughters with no major medical problems. General Exam - General Exam Comments Initial Comments: General: Appears in no acute distress. HEAD: Normal with no signs of head trauma. EYES: PERRLA, EOMI, conjunctiva normal, no discharge. ENT: Hearing grossly intact, normal oropharynx. RESPIRATORY: Clear breath sounds bilaterally. No wheezes, rales, or rhonchi. C/V: Regular rate and rhythm. S1 and S2 auscultated, no edema, peripheral pulses 2+ and intact throughout ABD: Abd is soft, nontender, nondistended EXT: Normal range of motion, no obvious deformity SKIN: No rashes or lesions observed on exposed skin. NEURO: Alert and oriented x 4. Cranial nerves II-XII intact. No focal sensory or strength deficits. Limitations: no limitations Course Vital Signs 12/06/22 05:31 Temperature 97.9 F Pulse Rate 80 Respiratory 16 Rate Blood Pressure 144/70 O2 Sat by Pulse 97 Oximetry Medical Decision Making - Medical Decision Making Was pt. sent in by a medical professional or institution (, PA, COMPOTYPE OPERATOR, urgent care, hospital, or detention...) When possible be specific @ -No Did you speak to anyone other than the patient for history (EMS, parent, family, police, friend...)? What history was obtained from this source @ -No Did you review nursing and triage notes (agree or disagree)? Why? @ -I reviewed and agree with nursing and triage notes Were old charts reviewed (outside hosp., previous admission, EMS record, old EKG, old radiological studies, urgent care reports/EKG's, detention records)? Report findings @ - Old charts reviewed from 2019 when she last had similar complaints. Differential Diagnosis (chest pain, altered mental status, abdominal pain women, abdominal pain men, vaginal bleeding, weakness, fever, dyspnea, syncope, headache, dizziness, GI bleed, back pain, seizure, CVA, palpatations, mental health, musculoskeletal)? @ -Differential Chest Pain: Stable Angina, Unstable Angina, STEMI, NSTEMI Aortic Dissection, Pneumothorax, Musculoskeletal, Esophageal Spasm GERD, Cholecystitis, Pancreatitis, Zoster, this is not meant to be an all-inclusive list. EKG interpreted by me (3pts min.). @ -As above X-rays interpreted by me (1pt min.). @ -Chest x-ray shows no obvious acute cardiopulmonary process. CT interpreted by me (1pt min.). @ -None done U/S interpreted by me (1pt. min.). @ -None done What testing was considered but not performed or refused? (CT, X-rays, U/S, labs)? Why? @ -None What meds were considered but not given or refused? Why? @ -None Did you discuss the management of the patient with other professionals (professionals i.e. , PA, COMPOTYPE OPERATOR, lab, RT, psych nurse, high school social studies teacher, construction equipment operator, teacher, sanitation officer, trimming caser)? Give summary @ -Discussed with Dr. Quijano who accepted the patient to her service. Was smoking cessation discussed for >3mins.? @ -No Was critical care preformed (if so, how long)? @ -No Were there social determinants of health that impacted care today? How? (Homelessness, low income, unemployed, alcoholism, drug addiction, transportation, low edu. Level, literacy, decrease access to med. care, halfway, rehab)? @ -No Was there de-escalation of care discussed even if they declined (Discuss DNR or withdrawal of care, Hospice)? DNR status @ -No What co-morbidities impacted this encounter? (DM, HTN, Smoking, COPD, CAD, Cancer, CVA, ARF, Chemo, Hep., AIDS, mental health diagnosis, sleep apnea, morbid obesity)? @ -None Was patient admitted / discharged? Hospital course, mention meds given and route, prescriptions, significant lab abnormalities, going to OR and other pertinent info. @ -Based on patient's presentation and physical exam, concern for cardio pulmonary etiology for her current symptoms. Cannot Rule out anxiety either. Patient is currently resting comfortably, with minimal symptoms. States that they seem to be improving. However we will obtain cardiac labs, EKG, chest x- ray. She'll receive an aspirin as well as low-dose Ativan. Vital signs within acceptable limits. She was in agreement this plan. EKG showed no signs of ischemia.Chest x-ray unremarkable. Patient's labs show a d-dimer that is within acceptable limits. Troponin is undetectable. On reevaluation after Ativan administration, chest pain is down to 0, and at most 1. She is feeling much improved. We did discuss her workup patient's heart score the setting of someone sounding typical chest pain is 4. Because of this, I did recommend admission for appointment trending, echo, cardiology evaluation when she was in agreement with. I spoke with the admitting physician, Dr. Quijano who accepted the patient. Undiagnosed new problem with uncertain prognosis? @ -No Drug Therapy requiring intensive monitoring for toxicity (Heparin, Nitro, Insulin, Cardizem)? @ -No Were any procedures done? @ -No Diagnosis/symptom? @ -Chest pain Acute, or Chronic, or Acute on Chronic? @ -Acute Uncomplicated (without systemic symptoms) or Complicated (systemic symptoms)? @ -Complicated Side effects of treatment? @ -none Exacerbation, Progression, or Severe Exacerbation] @ -no Poses a threat to life or bodily function? @ -Yes - Lab Data Result diagrams: 12/06/22 05:43 12/06/22 05:43 Lab Results 12/06/22 12/06/22 12/06/22 Range/Units 05:43 05:43 05:43 WBC 5.3 (3.8-10.6) k/uL RBC 5.38 (3.80-5.40) m/uL Hgb 15.5 (11.4-16.0) gm/dL Hct 46.8 H (34.0-46.0) % MCV 87.0 (80.0-100.0) fL MCH 28.8 (25.0-35.0) pg MCHC 33.1 (31.0-37.0) g/dL RDW 12.9 (11.5-15.5) % Plt Count 222 (150-450) k/uL MPV 8.2 Neutrophils % 51 % Lymphocytes % 30 % Monocytes % 10 % Eosinophils % 7 % Basophils % 1 % Neutrophils # 2.7 (1.3-7.7) k/uL Lymphocytes # 1.6 (1.0-4.8) k/uL Monocytes # 0.5 (0-1.0) k/uL Eosinophils # 0.4 (0-0.7) k/uL Basophils # 0.0 (0-0.2) k/uL PT 9.5 (9.0-12.0) sec INR 0.9 (<1.2) APTT 25.0 (22.0-30.0) sec D-Dimer (<0.60) mg/L FEU Sodium 140 (137-145) mmol/L Potassium 3.5 (3.5-5.1) mmol/L Chloride 106 (98-107) mmol/L Carbon Dioxide 28 (22-30) mmol/L Anion Gap 6 mmol/L BUN 9 (7-17) mg/dL Creatinine 0.77 (0.52-1.04) mg/dL Est GFR (CKD-EPI)AfAm >90 (>60 ml/min/1.73 sqM) Est GFR (CKD-EPI)NonAf 83 (>60 ml/min/1.73 sqM) Glucose 132 H (74-99) mg/dL Calcium 9.2 (8.4-10.2) mg/dL Magnesium 2.3 (1.6-2.3) mg/dL Total Bilirubin 0.5 (0.2-1.3) mg/dL AST 32 (14-36) U/L ALT 42 H (4-34) U/L Alkaline Phosphatase 76 (38-126) U/L Troponin I (0.000-0.034) ng/mL Total Protein 6.6 (6.3-8.2) g/dL Albumin 4.1 (3.5-5.0) g/dL 12/06/22 12/06/22 Range/Units 05:43 05:43 WBC (3.8-10.6) k/uL RBC (3.80-5.40) m/uL Hgb (11.4-16.0) gm/dL Hct (34.0-46.0) % MCV (80.0-100.0) fL MCH (25.0-35.0) pg MCHC (31.0-37.0) g/dL RDW (11.5-15.5) % Plt Count (150-450) k/uL MPV Neutrophils % % Lymphocytes % % Monocytes % % Eosinophils % % Basophils % % Neutrophils # (1.3-7.7) k/uL Lymphocytes # (1.0-4.8) k/uL Monocytes # (0-1.0) k/uL Eosinophils # (0-0.7) k/uL Basophils # (0-0.2) k/uL PT (9.0-12.0) sec INR (<1.2) APTT (22.0-30.0) sec D-Dimer 0.47 (<0.60) mg/L FEU Sodium (137-145) mmol/L Potassium (3.5-5.1) mmol/L Chloride (98-107) mmol/L Carbon Dioxide (22-30) mmol/L Anion Gap mmol/L BUN (7-17) mg/dL Creatinine (0.52-1.04) mg/dL Est GFR (CKD-EPI)AfAm (>60 ml/min/1.73 sqM) Est GFR (CKD-EPI)NonAf (>60 ml/min/1.73 sqM) Glucose (74-99) mg/dL Calcium (8.4-10.2) mg/dL Magnesium (1.6-2.3) mg/dL Total Bilirubin (0.2-1.3) mg/dL AST (14-36) U/L ALT (4-34) U/L Alkaline Phosphatase (38-126) U/L Troponin I <0.012 (0.000-0.034) ng/mL Total Protein (6.3-8.2) g/dL Albumin (3.5-5.0) g/dL - EKG Data -: EKG Interpreted by Me EKG Comments: 12-lead Electrocardiogram Interpretation Note EKG was reviewed and interpreted by myself. 12-lead ECG performed at 0543 is interpreted by me as revealing normal sinus rhythm at a rate of 70 beats per minute. [place] is normal. AR interval is 169 ms, QRS duration is 91 ms, QTc is 411 ms. There were no ST or T wave abnormalities to suggest myocardial ischemia or injury. R wave progression across the precordium was satisfactory. By my interpretation this EKG is non-diagnostic for acute ischemia.Patient has an incomplete right bundle branch block. Disposition Clinical Impression: Chest pain Disposition: ADMITTED IP TO THIS HOSP Condition: Stable Referrals: Cam Mejia MD [Primary Care Provider] - 1-2 days Time of Disposition: 07:04
[2022-12-06] MEDS ORDERED: NALOXONE 0.4 MG/ML 1 ML VIAL IV PRN (07:07)
--- NOTE | 2022-12-06 07:43 | XR ---
EXAMINATION TYPE: XR chest 2V DATE OF EXAM: 12/06/2022 COMPARISON: 07/03/2018 HISTORY: Shortness of breath TECHNIQUE: Frontal and lateral views of the chest are obtained. FINDINGS: Scattered senescent parenchymal changes noted. Hyperinflation compatible with COPD. No evidence for infiltrate. No evidence for atelectasis. Heart size is stable. Mediastinal structures are stable and grossly unremarkable. No evidence for hilar prominence. Degenerative changes dorsal spine. IMPRESSION: 1. No evidence for acute pulmonary disease.
[2022-12-06] MEDS ORDERED: HEPARIN SODIUM,PORCINE/PF 5,000 UNIT/0.5 ML SYRINGE SQ SCH (08:00)
[2022-12-06 12:43] VITALS: RESP 15
--- NOTE | 2022-12-06 12:51 | CA ---
Stress Echo Report Anaya Pickett Age: 62 Gender: F : 1960 Exam Date: 12/06/2022 11:57 Exam Location: [facility] Ht (in): 66 Wt (lb): 210 Ordering Physician: Huy Vargas MD ([id number]) Referring Physician: Sam CALZADA Medical Chemist: MATT Technologist Procedure CPT: Indication: Chest Pain ICD-9 Codes: Rhythm: Patient History: Chest pain and short of breath Cardiac Medications: Medications in past 24 hours: Contrast: Lumason Stress Results Protocol: Nathanael Total dose(mL): 5 Exercise Duration (min:sec): 8:[address] Depression (mm): Angina Score: Dunlap Score: METS: 10.3 Resting HR: 90 Resting BP: 146 / 77 Peak HR: 160 Peak BP: 211 / 58 Max Predicted HR: 158 101 % Max Predicted HR Target HR: 134 Double Product: 81234 Stress Summary: BP Response: Reason for Termination: Reached target heart rate or work-load Cardiac Symptoms: No symptoms ECG Analysis Resting ECG: Normal sinus rhythm normal axis normal intervals Stress ECG: Patient exercised on Nathanael protocol for 8 minutes achieving 9 METs 85% of predicted maximal heart rate without chest pain or diagnostic ST segment depression Arrhythmia: Occasional PVCs are noted Echo Analysis Resting Echo: Technically suboptimal study secondary to poor echo windows endocardial visualization enhanced with contrast Peak Echo Analysis: Technically suboptimal No obvious areas of exercise induced wall motion abnormalities MEASUREMENTS (Male/Female) Normal Values CONCLUSIONS Good exercise tolerance Negative stress test by EKG criteria Negative stress echo Dr. Huy Vargas MD (Electronically Signed) Final Date: 06 December 2022 12:49
--- NOTE | 2022-12-06 13:36 | CONS ---
CONSULTATION CHIEF COMPLAINT: Chest pain. HISTORY OF PRESENT ILLNESS: Anaya is a 62-year-old lady with history of depression, dyslipidemia, and hypertension who presented to hospital complaining of chest discomfort. Her chest pain is precordial, mild intensity at rest, left-sided associated with prickly sensation all over her body, plus she is nauseous. She was trying to sleep, but it did not go away. Her was woken up and then came to the ER. The patient has had anxiety and she has had similar symptoms with it in the past. She is unsure of what it is related to. She had an EKG that showed sinus rhythm, incomplete right bundle-branch block, and poor R-wave progression. She has had 2 troponins that were both within normal limits. Creatinine is normal at 0.7. Hemoglobin is 15.5. She has had similar symptoms several years ago and underwent workup that was benign and unremarkable. I advised the patient to undergo an echocardiogram and a stress test and if these are benign, we can ambulate her and discharge her home in the morning. If these are abnormal, then we can consider further evaluation. PAST MEDICAL HISTORY: Significant for hypertension and dyslipidemia. CURRENT MEDICATIONS: Include: 1. Lexapro. 2. Advair. 3. Lipitor. 4. Dyazide. 5. Aspirin. 6. Fexofenadine. ALLERGIES: There are no known drug allergies. FAMILY HISTORY: Negative for premature coronary artery disease. SOCIAL HISTORY: Negative for current smoking, EtOH abuse or drug abuse. REVIEW OF SYSTEMS: 14 out of 14 review of systems has been performed. Pertinents are as documented. PHYSICAL EXAMINATION: GENERAL: Comfortable at rest. VITAL SIGNS: Stable. NECK: There is no jugular venous distention. Carotid upstroke is normal. There is no bruit. CHEST: Reveals good air entry bilaterally. HEART: Reveals first and second heart sounds. No gallop. No murmur. No rub. ABDOMEN: Soft, nontender. EXTREMITIES: Did not reveal any edema. Peripheral pulses are felt. ASSESSMENT AND PLAN: Precordial chest pain, rule out CAD. PLAN: Patient will have an echocardiogram done and stress test, and we will decide on further course of action based on these test results. MMODL / IJN: [id number] /
--- NOTE | 2022-12-06 14:07 | P.HPIM ---
History of Present Illness H&P Date: 12/06/22 History of present illness; patient is a [id number] lady with past medical history significant for hypertension, anxiety who presented to the ER because of chest pain. Patient stated that she woke up this morning while she was using the restroom started having chest pain. Chest pain was left-sided in location, pressure-like in nature, associated with shortness of breath and sweating. The patient stated that the chest pain was not radiating, there was no aggravating or relieving factors associated with this chest pain. Patient did complain of nausea. There was no complain of orthopnea or PND. No complaint of palpitations. Patient denies any swelling of feet. Because of this chest pain, patient came to the ER Initial lab work in the ER showed WBC 5.3, hemoglobin 15.5, platelet count 222, sodium 140, potassium 3.5, BUN 9, creatinine 0.77, glucose 132, AST 32, ALT 42, troponin 0.012, Chest x-ray was negative for any acute cardiopulmonary process EKG was reviewed, there was no acute ST segment changes, no T-wave inversion, ventricular rate of 70 bpm QRS was 91 Patient was admitted to medicine service REVIEW OF SYSTEMS: CONSTITUTIONAL: No fever, no malaise, no fatigue. HEENT: No recent visual problems or hearing problems. Denied any sore throat. CARDIOVASCULAR: As mentioned in HPI PULMONARY: No shortness of breath, no cough, no hemoptysis. GASTROINTESTINAL: No diarrhea, no nausea, no vomiting, no abdominal pain. NEUROLOGICAL: No headaches, no weakness, no numbness. HEMATOLOGICAL: Denies any bleeding or petechiae. GENITOURINARY: Denies any burning micturition, frequency, or urgency. MUSCULOSKELETAL/RHEUMATOLOGICAL: Denies any joint pain, swelling, or any muscle pain. ENDOCRINE: Denies any polyuria or polydipsia. The rest of the 14-point review of systems is negative. PHYSICAL EXAMINATION: GENERAL: The patient is alert and oriented x3, not in any acute distress. Well developed, well nourished. HEENT: Pupils are round and equally reacting to light. EOMI. No scleral icterus. No conjunctival pallor. Normocephalic, atraumatic. No pharyngeal erythema. No thyromegaly. CARDIOVASCULAR: S1 and S2 present. No murmurs, rubs, or gallops. PULMONARY: Chest is clear to auscultation, no wheezing or crackles. ABDOMEN: Soft, nontender, nondistended, normoactive bowel sounds. No palpable organomegaly. MUSCULOSKELETAL: No joint swelling or deformity. EXTREMITIES: No cyanosis, clubbing, or pedal edema. NEUROLOGICAL: Gross neurological examination did not reveal any focal deficits. SKIN: No rashes. Assessment and plan Chest pain Hypertension Anxiety Monitor vital signs Monitor CBC Monitor CMP Trend troponins. Continue telemetry monitoring Ordered d-dimer ordered HbA1c level Ordered 2-D echo Resume home meds Consult cardiology DVT prophylaxis: Past Medical History Past Medical History: Asthma, Hyperlipidemia, Hypertension Additional Past Medical History / Comment(s): ABDOMINAL PAIN, DIARRHEA History of Any Multi-Drug Resistant Organisms: None Reported Past Surgical History: Adenoidectomy, Cholecystectomy, Hysterectomy, Tonsillectomy Additional Past Surgical History / Comment(s): colonoscopy Past Anesthesia/Blood Transfusion Reactions: No Reported Reaction Past Psychological History: No Psychological Hx Reported Past Alcohol Use History: None Reported Past Drug Use History: None Reported - Past Family History Mother Family Medical History: Cancer Additional Family Medical History / Comment(s): Mother is alive at age 80 with history of hypertension and breast cancer. Father Family Medical History: Cancer Additional Family Medical History / Comment(s): Father at age 64 from kidney cancer with metastatic disease. Brother(s) Additional Family Medical History / Comment(s): Patient has 1 brother and 1 sister with no major medical problems. Patient is 2 daughters with no major med ical problems. Medications and Allergies Home Medications Medication Instructions Recorded Confirmed Type Aspirin EC [Ecotrin Low Dose] 162 mg PO DAILY 07/03/18 07/28/18 History Fluticasone Propion/Salmeterol 1 puff INHALATION RT-BID 07/03/18 07/28/18 History [Advair 250-50 Diskus] Triamterene-Hctz 37.5-25Mg 1 cap PO DAILY 07/03/18 07/26/18 History [Dyazide 37.5-25 Capsule] Metoprolol Tartrate [Lopressor] 25 mg PO BID #60 tab 07/04/18 07/28/18 Rx Rosuvastatin [Crestor] 20 mg PO HS #90 tablet 07/04/18 07/26/18 Rx Allergies Allergy/AdvReac Type Severity Reaction Status Date / Time No Known Allergies Allergy Verified 07/28/18 11:49 Physical Exam Vitals: Vital Signs Temp Pulse Pulse Resp BP Pulse Ox 12/06/22 09:10 63 132/76 96 12/06/22 09:00 63 20 135/69 96 12/06/22 08:50 64 135/69 97 12/06/22 08:40 65 135/69 95 12/06/22 08:30 135/88 97 12/06/22 08:29 68 12/06/22 08:20 67 20 135/88 97 12/06/22 08:15 97 12/06/22 05:31 97.9 F 80 16 144/70 97 Intake and Output 12/05/22 12/06/22 12/06/22 22:59 06:59 14:59 Other: Weight 95.254 kg Results CBC & Chem 7: 12/06/22 05:43 12/06/22 05:43 Labs: Abnormal Lab Results - Last 24 Hours (Table) 12/06/22 12/06/22 Range/Units 05:43 05:43 Hct 46.8 H (34.0-46.0) % Glucose 132 H (74-99) mg/dL ALT 42 H (4-34) U/L
[2022-12-06 14:49] VITALS: BP 142/82; PULSE 73; TEMP 98.2
--- NOTE | 2022-12-06 17:07 | CA ---
Transthoracic Echo Report Name: Anaya Pickett Age: 62 Gender: F : 1960 Exam Date: 12/06/2022 11:44 Exam Location: [facility] Ht (in): 66 Wt (lb): 210 Ordering Physician: Luciano Acuna MD Attending/Referring Phys: Outfitter [place] Vandana Slaughter RDCS Procedure CPT: Indications: Chest Pain Cardiac Hx: Technical Quality: Technically difficult study Contrast 1: Lumason Total Dose (mL): 4 Contrast 2: Total Dose (mL): MEASUREMENTS (Male / Female) Normal Values 2D ECHO LV Diastolic Diameter PLAX 4.4 cm 4.2 - 5.9 / 3.9 - 5.3 cm LV Systolic Diameter PLAX 3.0 cm IVS Diastolic Thickness 1.4 cm 0.6 - 1.0 / 0.6 - 0.9 cm LVPW Diastolic Thickness 1.6 cm 0.6 - 1.0 / 0.6 - 0.9 cm LV Relative Wall Thickness 0.7 RV Internal Dim ED PLAX 2.8 cm LA Volume 93.0 cm??? 18 - 58 / 22 - 52 cm??? M-MODE Aortic Root Diameter MM 2.9 cm LA Systolic Diameter MM 4.8 cm LA Ao Ratio MM 1.6 AV Cusp Separation MM 2.2 cm DOPPLER AV Peak Velocity 112.5 cm/s AV Peak Gradient 5.1 mmHg AV Mean Velocity 83.8 cm/s AV Mean Gradient 3.0 mmHg AV Velocity Time Integral 24.9 cm LVOT Peak Velocity 86.9 cm/s LVOT Peak Gradient 3.0 mmHg MV Area PHT 5.4 cm??? Mitral E Point Velocity 61.7 cm/s Mitral A Point Velocity 98.6 cm/s Mitral E to A Ratio 0.6 MV Deceleration Time 140.8 ms MV E' Velocity 4.8 cm/s Mitral E to MV E' Ratio 12.8 TR Peak Velocity 189.8 cm/s TR Peak Gradient 14.4 mmHg Right Ventricular Systolic Press 19.4 mmHg FINDINGS Left Ventricle Moderately increased left ventricular wall thickness. Left ventricular cavity size normal. Normal left ventricular diastolic filling pattern. Normal left ventricular systolic function with no obvious regional wall motion abnormalities. Left ventricular ejection fraction is estimated at 55-60 %. Right Ventricle Normal right ventricular size and function. Right ventricular systolic pressure within normal limits. Right Atrium Normal right atrial size. Left Atrium Severely increased left atrial volume. Mildly increased left atrial area. Mitral Valve Structurally normal mitral valve. Mild mitral regurgitation. Aortic Valve No aortic valve stenosis or regurgitation. Tricuspid Valve Structurally normal tricuspid valve. Mild tricuspid regurgitation. Pulmonic Valve Trace pulmonic regurgitation. Pericardium No pericardial effusion. Aorta Normal size aortic root and proximal ascending aorta. CONCLUSIONS Suboptimal study secondary to poor echo windows Normal LV function Previewed by: Dr. Huy Vargas MD (Electronically Signed) Final Date: 06 December 2022 17:06
[2022-12-07 02:35] LABS: Chol/HDL Ratio 2.68 Ratio; LDL Cholesterol,Calculated 66.2 mg/dL (0.0-131.0)
[2022-12-07] MEDS ORDERED: TRIAMTERENE-HCTZ 37.5-25MG 1 EACH CAP PO SCH (09:00)
--- NOTE | 2022-12-08 09:28 | P.DS ---
Providers Date of admission: 12/06/22 07:07 Expected date of discharge: 12/08/22 Attending physician: Sabi Quijano MD Consults: 12/06/22 07:07 Consult Physician Routine Consulting Provider: [facility] Consult Reason/Comments: chest pain Do you want consulting provider notified?: Yes Primary care physician: [facility] Course: Discharge diagnoses; Chest pain Hypertension Anxiety Hospital course; patient is a [id number] lady with past medical history significant for hypertension, anxiety who presented to the ER because of chest pain. Patient stated that she woke up this morning while she was using the restroom started having chest pain. Chest pain was left-sided in location, pressure-like in nature, associated with shortness of breath and sweating. The patient stated that the chest pain was not radiating, there was no aggravating or relieving factors associated with this chest pain. Patient did complain of nausea. There was no complain of orthopnea or PND. No complaint of palpitations. Patient denies any swelling of feet. Because of this chest pain, patient came to the ER Initial lab work in the ER showed WBC 5.3, hemoglobin 15.5, platelet count 222, sodium 140, potassium 3.5, BUN 9, creatinine 0.77, glucose 132, AST 32, ALT 42, troponin 0.012, Chest x-ray was negative for any acute cardiopulmonary process EKG was reviewed, there was no acute ST segment changes, no T-wave inversion, ventricular rate of 70 bpm QRS was 91 Patient was admitted to medicine service Patient was seen by cardiology, they recommended doing a 2-D echo and stress echocardiogram. Stress echo was negative for any ischemia, cardiology cleared the patient for discharge PHYSICAL EXAMINATION: GENERAL: The patient is alert and oriented x3, not in any acute distress. Well developed, well nourished. HEENT: Pupils are round and equally reacting to light. EOMI. No scleral icterus. No conjunctival pallor. Normocephalic, atraumatic. No pharyngeal erythema. No thyromegaly. CARDIOVASCULAR: S1 and S2 present. No murmurs, rubs, or gallops. PULMONARY: Chest is clear to auscultation, no wheezing or crackles. ABDOMEN: Soft, nontender, nondistended, normoactive bowel sounds. No palpable organomegaly. MUSCULOSKELETAL: No joint swelling or deformity. EXTREMITIES: No cyanosis, clubbing, or pedal edema. NEUROLOGICAL: Gross neurological examination did not reveal any focal deficits. SKIN: No rashes. Patient Condition at Discharge: Stable Plan - Discharge Summary New Discharge Prescriptions: Continue Triamterene-Hctz 37.5-25Mg [Dyazide 37.5-25 Capsule] 1 cap PO DAILY Aspirin EC [Ecotrin Low Dose] 162 mg PO HS Escitalopram [Lexapro] 10 mg PO HS Cholecalciferol [Vitamin D3 (25 Mcg = 1000 Iu)] 50 mcg PO DAILY Fluticasone Propion/Salmeterol [Advair 500-50 Diskus] 1 puff INHALATION RT- BID Fexofenadine HCl [Yuly Allergy] 180 mg PO HS Atorvastatin [Lipitor] 10 mg PO HS Discharge Medication List Aspirin EC [Ecotrin Low Dose] 162 mg PO HS 07/03/18 [History] Triamterene-Hctz 37.5-25Mg [Dyazide 37.5-25 Capsule] 1 cap PO DAILY 07/03/18 [History] Atorvastatin [Lipitor] 10 mg PO HS 12/06/22 [History] Cholecalciferol [Vitamin D3 (25 Mcg = 1000 Iu)] 50 mcg PO DAILY 12/06/22 [History] Escitalopram [Lexapro] 10 mg PO HS 12/06/22 [History] Fexofenadine HCl [Yuly Allergy] 180 mg PO HS 12/06/22 [History] Fluticasone Propion/Salmeterol [Advair 500-50 Diskus] 1 puff INHALATION RT-BID 12/06/22 [History] Follow up Appointment(s)/Referral(s): Cam Mejia MD [Primary Care Provider] - 1-2 days Huy Vargas MD [STAFF PHYSICIAN] - 1 Week Patient Instructions/Handouts: Chest Pain (DC) Activity/Diet/Wound Care/Special Instructions: FOLLOW UP SOONER FOR WORSENING SYMPTOMS, PROBLEMS, OR CONCERNS. Discharge Disposition: HOME SELF-CARE
== END 2022-12-06 15:35 | disposition home or self-care (01) ==
LOC: EC 05:29 → 6NMEDSUR 07:07
PROVIDERS: ADMIT Internal Medicine; ATTEND Internal Medicine
DX: R07.2 Precordial pain (principal); I10 Essential (primary) hypertension; I45.19 Other right bundle-branch block; F41.9 Anxiety disorder, unspecified; J45.909 Unspecified asthma, uncomplicated; E78.5 Hyperlipidemia, unspecified; Z90.49 Acquired absence of other specified parts of digestive tract; Z90.710 Acquired absence of both cervix and uterus; Z98.890 Other specified postprocedural states; Z82.49 Family history of ischemic heart disease and other diseases of the circulatory system; Z80.3 Family history of malignant neoplasm of breast; Z80.51 Family history of malignant neoplasm of kidney; F32.A Depression, unspecified; Z79.82 Long term (current) use of aspirin; Z79.51 Long term (current) use of inhaled steroids; Z79.899 Other long term (current) drug therapy
CPT/HCPCS: 99285; 36415; 93005; 93306; 93351; 85379; 80061; 80053; 83735; 84484; 85025; 85610; 85730; 83036; 71046; G0378; Q9950; J1644

== ENCOUNTER → 2023-03-02 | Outpatient (CLI) | payer BC ==
--- NOTE | 2023-03-02 08:51 | BD ---
EXAMINATION TYPE: Axial Bone Density DATE OF EXAM: 03/02/2023 CLINICAL HISTORY: 62 years old Female. ICD-10 CODE: M81.0 OSTEOPOROSIS Height: 65 Weight: 213 FRAX RISK QUESTIONS: Family History (Parent hip fracture): no History of Fracture in Adulthood: no Secondary Osteoporosis: no RISK FACTORS HISTORY OF: Family History of Osteoporosis: no Active: yes Diet low in dairy products/other sources of calcium: yes Postmenopausal woman: yes Lost more than 2 inches in height since high school: no Frequent falls: no Poor Health: no MEDICATIONS: Additional Medications: yes hbp, anxiety EXAM MEASUREMENTS: Bone mineral densitometry was performed using the [employer]. Bone mineral density as measured about the Lumbar spine is: ----- L1-L4(G/cm2): 1.124 T Score Values are as follows: ----- L1: 0.0 ----- L2: -1.0 ----- L3: -1.3 ----- L4: 0.2 ----- L1-L4: -0.5 Z Score Values are as follows: ----- L1: 0.4 ----- L2: -0.7 ----- L3: -0.9 ----- L4: 0.5 ----- L1-L4: -0.1 Bone mineral density has: Increased 6.0% since study of: 11/02/2017 Bone mineral density about the R hip (g/cm2): 0.971 Bone mineral density about the L hip (g/cm2): 0.963 T Score values are as follows: -----R Neck: -1.5 -----L Neck: -1.2 -----R Total: -0.3 -----L Total: -0.4 Z Score values are as follows: -----R Neck: -0.8 -----L Neck: -0.5 -----R Total: 0.0 -----L Total: 0.0 Bone mineral density has: Decreased 1.1% since study of: 11/02/2017 FRAX%s: The graph provided illustrates a 8.0% chance for a major osteoporotic fx and a 0.7% chance fo r the hips probability for fx in 10 years time. IMPRESSION: Osteopenia (T Score between -2.5 and -1). There is slightly increased risk of fracture and the patient may be considered for treatment. Re-Screen 2-5 years. NOTE: T-SCORE=SD OF THE YOUNG ADULT MEAN.
--- NOTE | 2023-03-03 08:28 | MM ---
Reason for Exam: Screening (asymptomatic). Last mammogram was performed 1 year(s) and 4 month(s) ago. Patient History: Menarche at age 14. First Full-Term at age 23. Left ovary removed at age 45. Right ovary removed at age 45. Hysterectomy at age 45. Postmenopausal. Hormonal Contraceptives for 3 years from age 20 until age 23. 08/2005, Benign Cyst Aspiration on the left side. 02/10/2004, Benign Stereotactic Core Biopsy on the left side. Maternal aunt had breast cancer. Mother had breast cancer, age 43. Risk Values: Mechelle 5 year model risk: 3.1%. NCI Lifetime model risk: 13.7%. Prior Study Comparison: 11/02/2017 Bilateral Screening Mammogram, [facility]. 05/06/2020 Bilateral MG 3D screening mammo w/cad, [facility]. 11/25/2021 Bilateral MG 3D screening mammo w/cad, [facility]. Tissue Density: The breast tissue is heterogeneously dense. This may lower the sensitivity of mammography. Findings: Analyzed By CAD. Partially obscured nodular density upper inner right breast at 1:00 8 cm from the nipple. Additional views are recommended. Stable benign appearing calcifications. Overall Assessment: Incomplete: need additional imaging evaluation, BI-RAD 0 Management: Diagnostic Mammogram of the right breast. . Patient should continue monthly self-breast exams. A clinical breast exam by your physician is recommended on an annual basis. This exam should not preclude additional follow-up of suspicious palpable abnormalities. Note on Mechelle scores and lifetime risk: 1. A Mechelle score greater than 3% is considered moderate risk. If this is the case, consider specialist referral to assess eligibility for a risk reducing agent. 2. If overall lifetime risk for the development of breast cancer is 20% or higher, the patient may qualify for future screening with alternating mammogram and breast MRI. Electronically signed and approved by: Basilio Murray M.D. Radiologis
== END | disposition home or self-care (01) ==
LOC: RADMAMWWP 07:24
PROVIDERS: ATTEND Internal Medicine Geriatric Medicine
DX: Z12.31 Encounter for screening mammogram for malignant neoplasm of breast (principal); M81.0 Age-related osteoporosis without current pathological fracture; M85.89 Other specified disorders of bone density and structure, multiple sites; Z78.0 Asymptomatic menopausal state; Z80.3 Family history of malignant neoplasm of breast
CPT/HCPCS: 77063; 77067; 77080

== ENCOUNTER → 2023-03-04 | Outpatient (CLI) | payer BC ==
--- NOTE | 2023-03-04 10:32 | MM ---
Reason for Exam: Additional evaluation requested from abnormal screening. Last screening mammogram was performed less than 1 month ago. Patient History: Menarche at age 14. First Full-Term at age 23. Left ovary removed at age 45. Right ovary removed at age 45. Hysterectomy at age 45. Postmenopausal. Hormonal Contraceptives for 3 years from age 20 until age 23. 08/2005, Benign Cyst Aspiration on the left side. 02/10/2004, Benign Stereotactic Core Biopsy on the left side. Maternal aunt had breast cancer. Mother had breast cancer, age 43. Risk Values: Mechelle 5 year model risk: 3.1%. NCI Lifetime model risk: 13.7%. Prior Study Comparison: 11/02/2017 Bilateral Screening Mammogram, [facility]. 05/06/2020 Bilateral MG 3D screening mammo w/cad, [facility]. 11/25/2021 Bilateral MG 3D screening mammo w/cad, [facility]. 03/02/2023 Bilateral MG 3D screening mammo w/cad, [facility]. Tissue Density: Right: The breast tissue is heterogeneously dense. This may lower the sensitivity of mammography. Findings: Analyzed By CAD. Nodular density right 1:00 position 8 cm from the nipple persists. Ultrasound is recommended. Overall Assessment: Incomplete: need additional imaging evaluation, BI-RAD 0 Management: Diagnostic Breast Ultrasound of the right breast. . Results were given to the patient verbally at the time of exam. Patient should continue monthly self-breast exams. A clinical breast exam by your physician is recommended on an annual basis. This exam should not preclude additional follow-up of suspicious palpable abnormalities. Note on Mechelle scores and lifetime risk: 1. A Mechelle score greater than 3% is considered moderate risk. If this is the case, consider specialist referral to assess eligibility for a risk reducing agent. 2. If overall lifetime risk for the development of breast cancer is 20% or higher, the patient may qualify for future screening with alternating mammogram and breast MRI. Electronically signed and approved by: Basilio Murray M.D. Radiologis
--- NOTE | 2023-03-04 11:06 | USB ---
Reason for Exam: Additional evaluation requested from abnormal screening. Patient History: Menarche at age 14. First Full-Term at age 23. Left ovary removed at age 45. Right ovary removed at age 45. Hysterectomy at age 45. Postmenopausal. Hormonal Contraceptives for 3 years from age 20 until age 23. 08/2005, Benign Cyst Aspiration on the left side. 02/10/2004, Benign Stereotactic Core Biopsy on the left side. Maternal aunt had breast cancer. Mother had breast cancer, age 43. Risk Values: Mechelle 5 year model risk: 3.1%. NCI Lifetime model risk: 13.7%. Technique: Method: Targeted. Prior Study Comparison: 05/06/2020 Bilateral MG 3D screening mammo w/cad, [facility]. 11/25/2021 Bilateral MG 3D screening mammo w/cad, [facility]. 03/02/2023 Bilateral MG 3D screening mammo w/cad, [facility]. Findings: The upper section of the breast of the right breast, the axilla of the right breast and the retroareolar of the right breast were scanned. Elongated hypoechoic structure seen at the right 1:00 position 7 cm from the nipple measuring 7 x 3 mm. Internal echoes noted. This likely reflects a small complex cyst. Six-month follow-up is advised. Overall Assessment: Probably benign, BI-RAD 3 Management: Diagnostic Breast Ultrasound of the right breast in 6 months. A clinical breast exam by your physician is recommended on an annual basis and results should be correlated with mammographic findings. This exam should not preclude additional follow-up of suspicious palpable abnormalities. Results were given to the patient verbally at the time of exam. Electronically signed and approved by: Basilio Murray M.D. Radiologis
== END | disposition home or self-care (01) ==
LOC: RADMAMWWP 10:01
PROVIDERS: ATTEND Internal Medicine Geriatric Medicine
DX: R92.8 Other abnormal and inconclusive findings on diagnostic imaging of breast (principal); Z78.0 Asymptomatic menopausal state; Z80.3 Family history of malignant neoplasm of breast
CPT/HCPCS: 77061; 77065

== ENCOUNTER → 2023-09-05 | Outpatient (CLI) | payer BC ==
--- NOTE | 2023-09-05 10:21 | USB ---
Reason for Exam: Follow-up at short interval from prior study. Patient History: Menarche at age 14. First Full-Term at age 23. Left ovary removed at age 45. Right ovary removed at age 45. Hysterectomy at age 45. Postmenopausal. Hormonal Contraceptives for 3 years from age 20 until age 23. 08/2005, Benign Cyst Aspiration on the left side. 02/10/2004, Benign Stereotactic Core Biopsy on the left side. Maternal aunt had breast cancer. Mother had breast cancer, age 43. Risk Values: Mechelle 5 year model risk: 3.2%. NCI Lifetime model risk: 13.3%. Technique: Method: Targeted. Prior Study Comparison: 11/25/2021 Bilateral MG 3D screening mammo w/cad, [facility]. 03/02/2023 Bilateral MG 3D screening mammo w/cad, [facility]. 03/04/2023 Right US breast workup limited RT, [facility]. 03/04/2023 Right MG 3D work up w/cad RT, [facility]. Findings: The upper inner quadrant of the right breast and the axilla of the right breast were scanned. Small elongated cyst at the right 1:00 breast 7 cm from the nipple is unchanged from prior study and measures 7 x 3 mm. No solid masses are identified within the [id number].. Overall Assessment: Benign, BI-RAD 2 Management: Screening Mammogram of both breasts in 6 months. A clinical breast exam by your physician is recommended on an annual basis and results should be correlated with mammographic findings. This exam should not preclude additional follow-up of suspicious palpable abnormalities. Results were given to the patient verbally at the time of exam. Electronically signed and approved by: Basilio Murray M.D. Radiologis
== END | disposition home or self-care (01) ==
LOC: RADUSWWP 09:45
PROVIDERS: ATTEND Internal Medicine Geriatric Medicine
DX: N60.01 Solitary cyst of right breast (principal); R92.8 Other abnormal and inconclusive findings on diagnostic imaging of breast; Z80.3 Family history of malignant neoplasm of breast; Z78.0 Asymptomatic menopausal state